=== PATIENT | female | born 1965 | race American Indian/Alaskan Native ===

== ENCOUNTER 2016-10-31 09:37 | Outpatient (CLI) | payer OTHER ==
--- NOTE | 2016-10-31 10:37 | Mammography Report ---
Spot compression magnification of cluster of calcification upper Outer left breast: Findings: There is cluster of pleomorphic calcification noted on spot magnification view without evidence of mass. Impression: Suspicious calcification for neoplasm. Recommend biopsy. BI-RADS CATEGORY: 4 = Suspicious. Dr. Fermin Was informed of the findings at 10: 30 AM on 10/31/16. ACR BI-RADS MAMMOGRAPHIC CODES: 0 = Needs additional imaging evaluation; 1 = Negative; 2 = Benign; 3 = Probably benign; 4 = Suspicious; 5 = Malignant; 6 = Known biopsy-proven malignancy COMMENT: 1. Dense breast tissue, i.e., adenosis, fibrocystic changes, etc., may obscure an underlying neoplasm. 2. Approximately 10% of cancers are not detected with mammography. 3. A negative mammography report should not delay biopsy if a clinically suspicious mass is present. The
== END 2016-10-31 09:38 | disposition home or self-care (01) ==
LOC: MAMMO 09:37
PROVIDERS: ATTEND Specialist
DX: R92.8 Other abnormal and inconclusive findings on diagnostic imaging of breast (principal)
CPT/HCPCS: G0206-LT

== ENCOUNTER 2016-11-11 09:35 | Outpatient (CLI) | payer OTHER ==
--- NOTE | 2016-11-11 12:59 | Mammography Report ---
LEFT DIGITAL DIAGNOSTIC MAMMOGRAM: 11/11/16 09:35:00 CLINICAL: For clip placement immediately status post protect it biopsy. COMPARISON:10/31/16 FINDINGS: A biopsy clip is now identified at 12 o'clock and the previously described calcifications have been removed. IMPRESSION: Successful stereotactic biopsy and concordant clip placement. BI-RADS CATEGORY: 4--Suspicious Pathology pending.
--- NOTE | 2016-11-11 13:09 | Mammography Report ---
STEREOTACTIC VACUUM ASSISTED BIOPSY WITH CLIP PLACEMENT LEFT BREAST: 11/11/16 09:35:00 CLINICAL: Clustered calcifications at 12 o'clock. COMPARISON:10/31/16 FINDINGS: Consent for the procedure was obtained. The calcifications were targeted with stereotactic guidance. The skin was prepped with Betadine and anesthetized with 1% lidocaine. 2% lidocaine with epinephrine was injected for deeper anesthesia. 8 gauge Mammotome biopsy was performed from a approach through a small dermatotomy. Prefire and post-fire images demonstrated satisfactory positioning of the probe. Samples were obtained around the clock face. A specimen radiograph confirmed satisfactory sampling with removal of commercial representative calcifications. A clip was placed at the biopsy site and the placement was confirmed with a radiograph. The probe was removed and hemostasis was achieved with mild pressure. A sterile dressing was applied. The patient tolerated the procedure well and there were no apparent complications. Two view mammogram demonstrated concordant position of the biopsy clip and no residual calcifications at the site. IMPRESSION: Uncomplicated successful stereotactic biopsy with clip placement left breast.
== END 2016-11-11 09:36 | disposition home or self-care (01) ==
LOC: SPVWC 09:35
PROVIDERS: ATTEND Specialist
DX: R92.0 Mammographic microcalcification found on diagnostic imaging of breast (principal)
CPT/HCPCS: 19081; 88305; A4648; G0206

== ENCOUNTER 2018-06-22 09:58 | Outpatient (CLI) | payer OTHER ==
--- NOTE | 2018-06-22 16:45 | Mammography Report ---
BILATERAL DIGITAL SCREENING MAMMOGRAM with CAD: 06/22/18 09:58:00 CLINICAL: Routine screening.Status post left benign stereotactic biopsy for calcifications 11/11/16 COMPARISON:10/31/16 and 08/20/16 FINDINGS: There are scattered areas of fibroglandular density.Left upper biopsy clip. The previously described left breast calcifications have been removed. No mass, architectural distortion or suspicious calcifications. IMPRESSION: No mammographic evidence of malignancy. BI-RADS CATEGORY: 2 -- Benign RECOMMENDATION: Routine mammographic screening in one year. COMMENT: Patient follow-up letters are generated by our [employer] application.
== END 2018-06-22 09:59 | disposition home or self-care (01) ==
LOC: SPVWC 09:58
PROVIDERS: ATTEND Specialist
DX: Z12.31 Encounter for screening mammogram for malignant neoplasm of breast (principal)
CPT/HCPCS: 77067

== ENCOUNTER 2019-06-24 09:32 | Outpatient (CLI) | payer BC ==
--- NOTE | 2019-06-27 10:11 | Mammography Report ---
DIGITAL SCREENING MAMMOGRAM WITH CAD, 06/24/2019 INDICATION: Routine screening mammography. History of a left stereotactic biopsy for benign calcifica tions. TECHNIQUE: Digital bilateral 2D mammography was obtained in the craniocaudal and mediolateral obliq ue projections. This examination was interpreted with the benefit of Computer-Aided Detection analysi s. COMPARISON: 06/22/2018 and 08/20/2016 FINDINGS: Breast Density: There are scattered areas of fibroglandular density. There is no evidence of dominant mass, suspicious calcifications or architectural distortion in eithe r breast. A stable right upper outer focal parenchymal asymmetry. A left upper biopsy clip. IMPRESSION: No mammographic evidence of malignancy. Follow up recommendation: Routine yearly BI-RADS Category 2: Benign. A "normal" or negative report should not discourage follow up or biopsy of a clinically significant f inding. A written summary of these findings will be mailed to the patient. The patient will be entered into a mammography reporting system which will generate a reminder letter for the patient's next appointmen t at the appropriate interval. The [employer] recommends yearly mammograms starting at age 40 and continuing as l iesha as a woman is in good health. Breast MRI is recommended for women with an approximate 20-25% or greater lifetime risk of breast cancer, including women with a strong family history of breast or ova carmen cancer or who have been treated for Hodgkin's disease. Signer Name: Jean Claude Burks MD Signed: 06/27/2019 10:06 AM Workstation Name: [id number]
== END 2019-06-24 09:33 | disposition home or self-care (01) ==
LOC: SPVWC 09:32
PROVIDERS: ATTEND Internal Medicine
DX: Z12.31 Encounter for screening mammogram for malignant neoplasm of breast (principal)
CPT/HCPCS: 77067